=== PATIENT | male | born 1985 | race African-American/Black ===

== ENCOUNTER 2024-01-19 08:19 | Emergency (ER) | payer MEDICAID, OTHER ==
[~2024-01-19] VITALS: Ht 172.7 cm; Wt 98.0 kg
[~2024-01-19 08:19] MED LIST: ADVAIR; ALBUTEROL
[2024-01-19 08:37] VITALS: O2SAT 99
[2024-01-19 10:06] LABS: BASOPHILS % 1.1 % (0.0-2.0); DIFFERENTIAL COMMENT 0; EOSINOPHILS % 3.2 % (0.0-5.0); HEMATOCRIT. 44.7 % (42.0-52.0); LYMPHOCYTES % 37.8 % (20.0-50.0); MEAN CORPUSCULAR HEMOGLOBIN 27.5 pg (28.0-32.0); MEAN CORPUSCULAR HGB CONC 33.5 g/dL (31.0-37.0); MEAN CORPUSCULAR VOLUME 82.2 fL (80.0-94.0); MEAN PLATELET VOLUME 9.2 fl (7.4-10.4); MONOCYTES % 8.1 % (2.0-8.0); NEUTROPHILS % 49.8 % (40.0-76.0); PLATELET 166 x1000/uL (130-400); RED BLOOD CELL COUNT 5.45 mill/uL (4.7-6.1); RED CELL DISTRIBUTION WIDTH 13.4 % (11.6-14.6); WHITE BLOOD COUNT 6.5 x1000/uL (4.5-11.0)
[2024-01-19 10:13] LABS: CHLORIDE 107 mEq/L (98-107); SODIUM 137 mEq/L (136-145)
[2024-01-19 10:14] LABS: CARBON DIOXIDE 26 mEq/L (21-32)
[2024-01-19 10:19] LABS: CREATININE 0.6 mg/dL (0.6-1.3); GLUCOSE 106 mg/dL (70-105); UREA NITROGEN BLOOD 9 mg/dL (9-23)
[2024-01-19 10:21] LABS: ALANINE AMINOTRANSFERASE 46 IU/L (10-49); ALBUMIN 4.2 g/dL (3.2-4.8); ASPARTATE AMINOTRANSFERASE 24 IU/L (<34); BILIRUBIN TOTAL 0.6 mg/dL (0.1-1.0); PROTEIN TOTAL 7.5 g/dL (6.0-8.3)
[2024-01-19 10:36] LABS: TROPONIN I HIGH SENSITIVITY < 4 ng/L (3.0-53)
[2024-01-19 10:49] LABS: CLARITY URINE CLEAR (CLEAR); COLOR URINE YELLOW (YELLOW); GLUCOSE URINE NEGATIVE (NEGATIVE); KETONES URINE NEGATIVE (NEGATIVE); LEUKOCYTE ESTERASE URINE TRACE (NEGATIVE); NITRITE URINE NEGATIVE (NEGATIVE); OCCULT BLOOD URINE NEGATIVE (NEGATIVE); PROTEIN URINE NEGATIVE (NEGATIVE); SPECIFIC GRAVITY URINE 1.004 (1.005-1.030); UROBILINOGEN URINE 0.2 E.U./dL (0.2-1.0)
[2024-01-19 11:10] LABS: SQUAMOUS EPITHELIAL CELL URINE RARE /lpf (RARE/1+)
[2024-01-19 11:12] LABS: BACTERIA URINE TRACE; RBC URINE 0-2 /hpf (0-2)
[2024-01-19 11:14] LABS: CALCIUM 10.1 mg/dL (8.7-10.4)
[2024-01-19 12:07] VITALS: BP 142/93; PULSE 85; RESP 18; TEMP 97.3
== END 2024-01-19 12:11 | disposition home or self-care (01) ==
LOC: ER 08:19
DX: R07.9 Chest pain, unspecified (principal); M54.9 Dorsalgia, unspecified; I10 Essential (primary) hypertension; F41.9 Anxiety disorder, unspecified; J45.909 Unspecified asthma, uncomplicated; F12.90 Cannabis use, unspecified, uncomplicated
CPT/HCPCS: 36415; 71045; 80053; 81003; 84484; 85025; 87077; 87186; 93005; 99285

== ENCOUNTER 2024-01-30 05:09 | Inpatient (IN) | payer OTHER ==
[~2024-01-30] VITALS: Ht 175.3 cm; Wt 97.5 kg
[2024-01-30 08:16] LABS: PROTHROMBIN TIME 11.2 sec (9.6-11.0)
[2024-01-30 08:30] LABS: CHLORIDE 101 mEq/L (98-107); POTASSIUM 3.7 mEq/L (3.5-5.1); SODIUM 137 mEq/L (136-145)
[2024-01-30 08:31] LABS: CARBON DIOXIDE 29 mEq/L (21-32)
[2024-01-30 08:36] LABS: BASOPHILS % 0.5 % (0.0-2.0); CREATININE 0.9 mg/dL (0.6-1.3); EOSINOPHILS % 1.2 % (0.0-5.0); GLUCOSE 96 mg/dL (70-105); HEMOGLOBIN. 14.8 g/dL (14.0-18.0); LYMPHOCYTES % 14.6 % (20.0-50.0); MEAN CORPUSCULAR HGB CONC 33.7 g/dL (31.0-37.0); MEAN CORPUSCULAR VOLUME 83.1 fL (80.0-94.0); MONOCYTES % 7.2 % (2.0-8.0); NEUTROPHILS % 76.5 % (40.0-76.0); PLATELET 218 x1000/uL (130-400); RED BLOOD CELL COUNT 5.29 mill/uL (4.7-6.1); RED CELL DISTRIBUTION WIDTH 12.8 % (11.6-14.6); UREA NITROGEN BLOOD 8 mg/dL (9-23); WHITE BLOOD COUNT 8.5 x1000/uL (4.5-11.0)
[2024-01-30 08:58] LABS: TROPONIN I HIGH SENSITIVITY < 4 ng/L (3.0-53)
[2024-01-30] MEDS: LEVOFLOXACIN 750MG PREMIX 150 ML IV ONE (09:56)
[2024-01-30] MEDS: SODIUM CHLORIDE 0.9% 1000ML BAG (SEPSIS BOLUS) IV ONE (09:56)
[2024-01-30 10:44] LABS: CLARITY URINE TURBID (CLEAR); COLOR URINE YELLOW (YELLOW); GLUCOSE URINE NEGATIVE (NEGATIVE); KETONES URINE 1+ (NEGATIVE); LEUKOCYTE ESTERASE URINE 2+ (NEGATIVE); NITRITE URINE POSITIVE (NEGATIVE); OCCULT BLOOD URINE 2+ (NEGATIVE); PH URINE >=9.0 (4.5-8.0); PROTEIN URINE 2+ (NEGATIVE); SPECIFIC GRAVITY URINE 1.017 (1.005-1.030)
[2024-01-30 11:01] LABS: BACTERIA URINE 4+; SQUAMOUS EPITHELIAL CELL URINE NONE SEEN /lpf (RARE/1+); YEAST URINE NONE SEEN
[2024-01-30] MEDS: ONDANSETRON HCL 4MG/2ML INJ IV ONE (11:40)
[2024-01-30] MEDS: MORPHINE SULFATE 4 MG/ML INJ (FOR IV/IM USE) IV ONE (11:40)
[2024-01-30 16:00] VITALS: BP 172/105; PULSE 98; RESP 20; TEMP 98.4
[2024-01-30] MEDS: DOCUSATE SODIUM 100MG CAPSULE PO SCH (17:15)
[2024-01-30] MEDS ORDERED: CLONIDINE 0.1MG TABLET PO PRN (17:15)
[2024-01-30] MEDS ORDERED: MAGNESIUM/ALUMINUM HYDROXIDE/SIMETHICONE 30ML UDC PO PRN (17:15)
[2024-01-30] MEDS ORDERED: IPRATROPIUM/ALBUTEROL 0.5-3(2.5)MG/3ML NEB HHN PRN (17:15)
[2024-01-30] MEDS ORDERED: ACETAMINOPHEN 325MG TABLET PO PRN ×2 (17:15)
[2024-01-30] MEDS ORDERED: HYDROCODONE/ACETAMINOPHEN 5/325MG TABLET PO PRN (17:29)
[2024-01-30] MEDS: AMLODIPINE 5MG TABLET PO SCH (18:30)
[2024-01-30] MEDS: CEFTRIAXONE 1GM/50ML 50 ML IV SCH (18:56)
[2024-01-30 18:58] LABS: T4 FREE 1.33 ng/dL (0.89-1.76); THYROID STIMULATING HORMONE 1.46 uIU/mL (0.55-4.78)
[2024-01-30 19:13] VITALS: BP 151/109; PULSE 78; RESP 18; TEMP 98
[2024-01-30] MEDS: MORPHINE SULFATE 2 MG/ML CPJ (NOT FOR IM USE) IV PRN (20:26)
[2024-01-30] MEDS: ONDANSETRON HCL 4MG/2ML INJ IV PRN (20:26)
[2024-01-30] MEDS: METOCLOPRAMIDE HCL 10MG/2ML VIAL IV PRN (21:19)
[2024-01-30] MEDS: HYDROMORPHONE HCL/PF 2MG/ML CPJ IV PRN (21:20)
[2024-01-31 00:19] LABS: CREATINE KINASE MB FRACTION 0.5 ng/mL (0.5-3.6)
[2024-01-31 00:20] LABS: CREATINE KINASE 73 IU/L (46-171)
[2024-01-31 00:22] LABS: TROPONIN I HIGH SENSITIVITY < 4 ng/L (3.0-53)
[2024-01-31 06:36] LABS: BASOPHILS % 0.4 % (0.0-2.0); EOSINOPHILS % 0.4 % (0.0-5.0); HEMATOCRIT. 39.5 % (42.0-52.0); HEMOGLOBIN. 13.6 g/dL (14.0-18.0); LYMPHOCYTES % 14.9 % (20.0-50.0); MEAN CORPUSCULAR HEMOGLOBIN 28.1 pg (28.0-32.0); MEAN CORPUSCULAR HGB CONC 34.3 g/dL (31.0-37.0); MEAN CORPUSCULAR VOLUME 81.7 fL (80.0-94.0); MEAN PLATELET VOLUME 9.4 fl (7.4-10.4); NEUTROPHILS % 74.3 % (40.0-76.0); PLATELET 218 x1000/uL (130-400); RED BLOOD CELL COUNT 4.84 mill/uL (4.7-6.1); RED CELL DISTRIBUTION WIDTH 12.6 % (11.6-14.6); WHITE BLOOD COUNT 11.1 x1000/uL (4.5-11.0)
[2024-01-31 06:48] LABS: CHLORIDE 103 mEq/L (98-107); POTASSIUM 3.6 mEq/L (3.5-5.1); SODIUM 136 mEq/L (136-145)
[2024-01-31 06:49] LABS: CARBON DIOXIDE 25 mEq/L (21-32)
[2024-01-31 06:50] LABS: CALCIUM 9.4 mg/dL (8.7-10.4)
[2024-01-31 06:54] LABS: CREATININE 0.6 mg/dL (0.6-1.3); UREA NITROGEN BLOOD 9 mg/dL (9-23)
[2024-01-31 06:55] LABS: GLUCOSE 102 mg/dL (70-105)
[2024-01-31 06:56] LABS: ALANINE AMINOTRANSFERASE 17 IU/L (10-49); ALBUMIN 3.9 g/dL (3.2-4.8); ASPARTATE AMINOTRANSFERASE 14 IU/L (<34); CREATINE KINASE MB FRACTION < 0.5 ng/mL (0.5-3.6)
[2024-01-31 06:57] LABS: BILIRUBIN DIRECT 0.2 mg/dL (<=3.0); BILIRUBIN TOTAL 0.6 mg/dL (0.1-1.0)
[2024-01-31 06:59] LABS: CREATINE KINASE 62 IU/L (46-171)
[2024-01-31 07:23] LABS: TROPONIN I HIGH SENSITIVITY < 4 ng/L (3.0-53)
[2024-01-31] MEDS: PANTOPRAZOLE SODIUM 40 MG/VIAL IV SCH (08:53)
[2024-01-31 12:00] VITALS: BP 153/98; PULSE 80; RESP 19; TEMP 97.5
[2024-01-31] MEDS ORDERED: HYDROCODONE/ACETAMINOPHEN 5/325MG TABLET PO PRN (14:00)
[2024-01-31 16:00] VITALS: BP 163/95; PULSE 82; RESP 18; TEMP 97.6
[2024-01-31] MEDS: POLYETHYLENE GLYCOL 3350 (17GM) 1 DOSE PACK PO NR (16:39)
[2024-01-31] MEDS: ACETAMINOPHEN 500MG TABLET PO SCH (16:40)
[2024-01-31 20:00] VITALS: BP 150/102; PULSE 98; RESP 17; TEMP 96.3
[2024-01-31] MEDS: SENNOSIDES/DOCUSATE SOD 8.6/50MG TABLET PO SCH (21:00)
[2024-01-31] MEDS: ATORVASTATIN CALCIUM 40MG TABLET PO SCH (22:06)
[2024-02-01] VITALS: BP 150/102; PULSE 98; RESP 17; TEMP 96.3
[2024-02-01 04:00] VITALS: BP 140/107; PULSE 74; RESP 18; TEMP 97.1
[2024-02-01 07:20] LABS: CHLORIDE 100 mEq/L (98-107); POTASSIUM 3.6 mEq/L (3.5-5.1); SODIUM 136 mEq/L (136-145)
[2024-02-01 07:21] LABS: CARBON DIOXIDE 30 mEq/L (21-32)
[2024-02-01 07:22] LABS: CALCIUM 9.6 mg/dL (8.7-10.4)
[2024-02-01 07:26] LABS: CREATININE 0.9 mg/dL (0.6-1.3); GLUCOSE 94 mg/dL (70-105)
[2024-02-01 07:27] LABS: UREA NITROGEN BLOOD 9 mg/dL (9-23)
[2024-02-01 07:28] LABS: BASOPHILS % 0.4 % (0.0-2.0); EOSINOPHILS % 1.4 % (0.0-5.0); HEMATOCRIT. 39.8 % (42.0-52.0); HEMOGLOBIN. 13.7 g/dL (14.0-18.0); LYMPHOCYTES % 23.1 % (20.0-50.0); MEAN CORPUSCULAR HEMOGLOBIN 27.8 pg (28.0-32.0); MEAN CORPUSCULAR HGB CONC 34.5 g/dL (31.0-37.0); MEAN CORPUSCULAR VOLUME 80.6 fL (80.0-94.0); MEAN PLATELET VOLUME 9.8 fl (7.4-10.4); MONOCYTES % 11.5 % (2.0-8.0); NEUTROPHILS % 63.6 % (40.0-76.0); PLATELET 231 x1000/uL (130-400); RED BLOOD CELL COUNT 4.94 mill/uL (4.7-6.1); RED CELL DISTRIBUTION WIDTH 12.6 % (11.6-14.6); WHITE BLOOD COUNT 8.1 x1000/uL (4.5-11.0)
[2024-02-01 07:29] LABS: PHOSPHORUS 4.7 mg/dL (2.5-4.9)
[2024-02-01 08:30] VITALS: BP 144/97; PULSE 85; RESP 18; TEMP 96.6
[2024-02-01] MEDS: POLYETHYLENE GLYCOL 3350 (17GM) 1 DOSE PACK PO SCH (09:00)
[2024-02-01] MEDS: AMLODIPINE 10MG TABLET PO SCH (09:00)
[2024-02-01 13:15] VITALS: BP 154/90; PULSE 82; RESP 20; TEMP 98
[2024-02-01] MEDS ORDERED: NALOXONE HCL 0.4MG/ML VIAL IV PRN (15:30)
[2024-02-01 20:00] VITALS: BP 157/91; PULSE 82; RESP 19; TEMP 97.8
[2024-02-02] VITALS: BP 146/87; PULSE 70; RESP 20; TEMP 97.4
[2024-02-02 04:00] VITALS: BP 104/75; PULSE 118; RESP 20; TEMP 96.9
[2024-02-02] MEDS: SODIUM CHLORIDE 0.9% 500 ML IV ONE (05:44)
[2024-02-02 06:00] LABS: BASOPHILS % 1.1 % (0.0-2.0); EOSINOPHILS % 2.5 % (0.0-5.0); HEMATOCRIT. 40.1 % (42.0-52.0); HEMOGLOBIN. 13.8 g/dL (14.0-18.0); LYMPHOCYTES % 48.4 % (20.0-50.0); MEAN CORPUSCULAR HEMOGLOBIN 27.9 pg (28.0-32.0); MEAN CORPUSCULAR HGB CONC 34.5 g/dL (31.0-37.0); MEAN CORPUSCULAR VOLUME 80.8 fL (80.0-94.0); MEAN PLATELET VOLUME 9.5 fl (7.4-10.4); MONOCYTES % 9.9 % (2.0-8.0); NEUTROPHILS % 38.1 % (40.0-76.0); PLATELET 291 x1000/uL (130-400); RED BLOOD CELL COUNT 4.96 mill/uL (4.7-6.1); RED CELL DISTRIBUTION WIDTH 12.7 % (11.6-14.6); WHITE BLOOD COUNT 7.9 x1000/uL (4.5-11.0)
[2024-02-02 06:06] LABS: CARBON DIOXIDE 24 mEq/L (21-32); CHLORIDE 104 mEq/L (98-107); POTASSIUM 3.3 mEq/L (3.5-5.1); SODIUM 134 mEq/L (136-145)
[2024-02-02 06:07] LABS: CALCIUM 9.9 mg/dL (8.7-10.4)
[2024-02-02 06:11] LABS: CREATININE 0.9 mg/dL (0.6-1.3); GLUCOSE 139 mg/dL (70-105)
[2024-02-02 06:12] LABS: UREA NITROGEN BLOOD 10 mg/dL (9-23)
[2024-02-02 06:14] LABS: PHOSPHORUS 3.9 mg/dL (2.5-4.9)
[2024-02-02] MEDS: PANTOPRAZOLE SODIUM 40 MG/VIAL IV NR (06:54)
[2024-02-02 07:50] VITALS: BP 122/78; PULSE 100
[2024-02-02 08:00] VITALS: BP 133/82; PULSE 105; RESP 20; TEMP 96.3
[2024-02-02] MEDS ORDERED: FAMOTIDINE 20MG/2ML VIAL IV SCH (09:00)
[2024-02-02 12:00] VITALS: BP 139/91; PULSE 97; RESP 20; TEMP 97.6
[2024-02-02] MEDS: PANTOPRAZOLE SODIUM 40 MG/VIAL IV SCH (17:34)
[2024-02-02 18:22] LABS: HEMATOCRIT 32.7 % (42.0-52.0); HEMOGLOBIN 11.2 g/dL (14.0-18.0)
[2024-02-02 20:00] VITALS: BP 137/74; PULSE 100; RESP 20; TEMP 98.7
[2024-02-03 06:52] LABS: CALCIUM 9.3 mg/dL (8.7-10.4); CHLORIDE 103 mEq/L (98-107); POTASSIUM 3.8 mEq/L (3.5-5.1); SODIUM 136 mEq/L (136-145)
[2024-02-03 06:53] LABS: CARBON DIOXIDE 30 mEq/L (21-32)
[2024-02-03 06:57] LABS: BASOPHILS % 0.8 % (0.0-2.0); HEMATOCRIT. 32.8 % (42.0-52.0); HEMOGLOBIN. 11.3 g/dL (14.0-18.0); LYMPHOCYTES % 48.2 % (20.0-50.0); MEAN CORPUSCULAR HGB CONC 34.5 g/dL (31.0-37.0); MEAN CORPUSCULAR VOLUME 81.1 fL (80.0-94.0); MEAN PLATELET VOLUME 9.3 fl (7.4-10.4); MONOCYTES % 10.3 % (2.0-8.0); NEUTROPHILS % 38.7 % (40.0-76.0); PLATELET 256 x1000/uL (130-400); RED BLOOD CELL COUNT 4.04 mill/uL (4.7-6.1); RED CELL DISTRIBUTION WIDTH 12.4 % (11.6-14.6); WHITE BLOOD COUNT 6.3 x1000/uL (4.5-11.0)
[2024-02-03 06:58] LABS: CREATININE 0.9 mg/dL (0.6-1.3); GLUCOSE 99 mg/dL (70-105); UREA NITROGEN BLOOD 10 mg/dL (9-23)
[2024-02-03 07:00] LABS: PHOSPHORUS 4.2 mg/dL (2.5-4.9)
[2024-02-03 08:00] VITALS: BP 125/78; PULSE 101; RESP 18; TEMP 96.6
[2024-02-03] MEDS ORDERED: PANTOPRAZOLE SODIUM 40 MG/VIAL IV SCH (09:00)
[2024-02-03 12:00] VITALS: BP 128/89; PULSE 90; RESP 18; TEMP 97.7
[2024-02-03] MEDS ORDERED: METO5TAB94 MT (12:36)
[2024-02-03] MEDS ORDERED: LIP40 PO (12:36)
[2024-02-03] MEDS ORDERED: ACET-2708 PO (12:36)
[2024-02-03] MEDS ORDERED: SULF1TAB48 MT (12:36)
[2024-02-03 16:00] VITALS: BP 156/89; PULSE 94; RESP 18; TEMP 97.6
[2024-02-03 16:58] VITALS: RESP 18
[2024-02-03 17:03] VITALS: BP 156/89; PULSE 94; TEMP 97.6; O2SAT 98
[2024-02-10] MEDS ORDERED: SUCR1TAB MT (13:18)
[2024-02-10] MEDS ORDERED: PROT40 MT (13:18)
[2024-02-10] MEDS ORDERED: VANC125C11 MT (17:00)
== END 2024-02-03 18:18 | disposition home or self-care (01) | DRG 468 ==
LOC: ER 05:09 → 5WST 11:01 → EDBEDREQ 12:43 → EDBEDREQTM 12:43 → 6WST 16:18
PROVIDERS: ADMIT Internal Medicine; ATTEND Internal Medicine
DX: N32.1 Vesicointestinal fistula (principal); K57.92 Diverticulitis of intestine, part unspecified, without perforation or abscess without bleeding; E78.5 Hyperlipidemia, unspecified; I10 Essential (primary) hypertension; J45.909 Unspecified asthma, uncomplicated; I16.0 Hypertensive urgency; N39.0 Urinary tract infection, site not specified; K57.90 Diverticulosis of intestine, part unspecified, without perforation or abscess without bleeding; F41.9 Anxiety disorder, unspecified; R73.03 Prediabetes; K59.00 Constipation, unspecified; F12.90 Cannabis use, unspecified, uncomplicated; G89.18 Other acute postprocedural pain; Z87.440 Personal history of urinary (tract) infections; Z90.49 Acquired absence of other specified parts of digestive tract
CPT/HCPCS: 36415; 71045; 74018; 80048; 80061; 80076; 81003; 82550; 82553; 83036; 83605; 83735; 84100; 84145; 84439; 84443; 84484; 85014; 85018; 85025; 85379; 87077; 87186; 93005; 99285; C9113; J0696; J1170; J1956; J2270; J2405; J2765; J7030